=== PATIENT | female | born 1960 | race Caucasian/White ===

== ENCOUNTER 2019-10-11 20:48 | Emergency (ER) | payer MEDICARE ==
[~2019-10-11] VITALS: Ht 167.6 cm; Wt 95.3 kg
[~2019-10-11 20:48] MED LIST: ABILIFY10 MG; ABILIFY10 MG PO; ACCUNEB SO1.25 MG/1; ADVAIR 100-501 EACH INH; ADVAIR 250-501 EACH; ADVAIRDISKUS; ALLOPURINOL 10100 M1 PO; AMBIEN 5 MG TABL5 MG; AMLODIPINE BESY10 MG PO; ANAPROX DS550 MG PO; ASPIRIN325; ATIVAN1 MG PO; BENADRYL ALLERG25 MG PO; BENADRYL25 MG PO; CARVEDILOL12.5 MG PO; CARVEDILOL3.125 MG; CIPROFLOXACIN500 M1 PO; CLARITIN10 MG; CLONAZEPAM 0.50.5 M1; CLONAZEPAM 0.50.5 M1 PO; CLONAZEPAM PO; CLONOPIN; CYMBALTA60 MG PO; FLEXERIL PO; HYCET 7.5 MG-3473 ML PO; HYDROCHLOROTH12.5 MG PO; HYDROCHLOROTHIA25 M2 PO; HYDROCODONE-AP1 EAC6 PO; KEFLEX500 MG PO; LISINOPRIL10 MG PO; LOPRESSOR100 MG PO; LOTRIMIN30 GM TP; MEDROLDOSEPACK PO; NOHOMEMEDICATIONS; NORCO 5-325 TA1 EACH PO; OXYCODONE HCL 55 MG PO; OXYCODONE HCL5 M1 PO; OXYCONTIN PO; PERCOCET 5-3251 EACH PO; PERCOCET 7.5-31 EACH PO; PHENERGAN 25 MG25 M1 PO; PHENERGAN 25 MG25 MG PO; PROVENTIL; PROZAC20 MG PO; ROXICODONE5 M2 PO; SEROQUEL; SEROQUEL XR200 MG PO; TOFRANIL PO; TRAZODONE HCL100 MG PO; TRAZODONE HCL50 MG PO; VALIUM10 MG PO; VALIUM5 MG PO; VENTOLIN HFA 1818 GM INH; VICODIN 5-5001 EACH PO; VICOPROFEN 2001 EACH PO; XANAX XR1 MG; XANAX XR1 MG PO; ZOFRAN ODT4 MG PO
[2019-10-11] MEDS ORDERED: NORCO 5-325 TA1 EAC2 PO (23:09)
[2019-10-11 23:33] VITALS: BP 116/68
== END 2019-10-11 23:35 | disposition home or self-care (01) ==
LOC: M.ERS 20:48
DX: S83.8X2A Sprain of other specified parts of left knee, initial encounter (principal); S93.492A Sprain of other ligament of left ankle, initial encounter; M25.551 Pain in right hip; I10 Essential (primary) hypertension; J44.9 Chronic obstructive pulmonary disease, unspecified; F32.9 Major depressive disorder, single episode, unspecified; F41.9 Anxiety disorder, unspecified; F17.210 Nicotine dependence, cigarettes, uncomplicated; Z90.710 Acquired absence of both cervix and uterus; Z91.040 Latex allergy status; Z88.0 Allergy status to penicillin; Z88.1 Allergy status to other antibiotic agents; Z88.2 Allergy status to sulfonamides; Z88.8 Allergy status to other drugs, medicaments and biological substances; W01.0XXA Fall on same level from slipping, tripping and stumbling without subsequent striking against object, initial encounter; Y93.89 Activity, other specified; Y92.481 Parking lot as the place of occurrence of the external cause; Y99.8 Other external cause status

== ENCOUNTER 2019-11-09 13:17 | Emergency (ER) | payer MEDICARE, MEDICAID ==
[~2019-11-09] VITALS: Ht 167.6 cm; Wt 97.5 kg
[~2019-11-09 13:17] MED LIST changes: +NORCO 5-325 TA1 EAC2 PO
[2019-11-09] MEDS ORDERED: TRAMADOL 50 MG50 MG PO (14:41)
[2019-11-09 14:59] VITALS: BP 148/90
== END 2019-11-09 15:01 | disposition home or self-care (01) ==
LOC: M.ERS 13:17
DX: M54.5 Low back pain (principal); M79.671 Pain in right foot; M53.3 Sacrococcygeal disorders, not elsewhere classified; I10 Essential (primary) hypertension; F17.210 Nicotine dependence, cigarettes, uncomplicated; Z90.710 Acquired absence of both cervix and uterus; Z85.858 Personal history of malignant neoplasm of other endocrine glands; Z91.040 Latex allergy status; Z88.0 Allergy status to penicillin; Z88.2 Allergy status to sulfonamides; Z88.8 Allergy status to other drugs, medicaments and biological substances; Z88.1 Allergy status to other antibiotic agents; W10.8XXA Fall (on) (from) other stairs and steps, initial encounter; Y93.89 Activity, other specified; Y92.89 Other specified places as the place of occurrence of the external cause; Y99.8 Other external cause status

== ENCOUNTER 2020-01-02 19:12 | Emergency (ER) | payer MEDICARE, MEDICAID ==
[~2020-01-02] VITALS: Ht 167.6 cm; Wt 93.0 kg
[~2020-01-02 19:12] MED LIST changes: +TRAMADOL 50 MG50 MG PO
[2020-01-02] MEDS ORDERED: NORCO 5-325 TA1 EAC2 PO (20:35)
[2020-01-02 20:54] VITALS: BP 0/0
== END 2020-01-02 20:55 | disposition home or self-care (01) ==
LOC: M.ERS 19:12
DX: M25.572 Pain in left ankle and joints of left foot (principal); J44.9 Chronic obstructive pulmonary disease, unspecified; I10 Essential (primary) hypertension; F17.210 Nicotine dependence, cigarettes, uncomplicated; Z91.040 Latex allergy status; Z88.0 Allergy status to penicillin; Z88.2 Allergy status to sulfonamides; Z88.8 Allergy status to other drugs, medicaments and biological substances; Z90.710 Acquired absence of both cervix and uterus

== ENCOUNTER 2020-07-14 13:51 | Emergency (ER) | payer MEDICARE, MEDICAID ==
[~2020-07-14] VITALS: Ht 167.6 cm; Wt 99.8 kg
[2020-07-14] MEDS ORDERED: LISINOPRIL-HCT1 EACH PO (14:15)
[2020-07-14] MEDS ORDERED: LASIX 40 MG TAB40 MG (14:15)
[2020-07-14] MEDS ORDERED: ELIQUIS5 MG (14:15)
[2020-07-14] MEDS ORDERED: OMEPRAZOLE40 MG PO (14:16)
[2020-07-14] MEDS ORDERED: ASA81BEC PO (14:16)
[2020-07-14] MEDS ORDERED: KLOR-CON 1010 MEQ PO (14:17)
[2020-07-14] MEDS ORDERED: VOLTAREN100 GM TOP (14:17)
[2020-07-14] MEDS ORDERED: NORCO5 PO (16:08)
[2020-07-14 16:19] VITALS: BP 130/85
== END 2020-07-14 16:19 | disposition home or self-care (01) ==
LOC: M.ERS 13:51
DX: M25.562 Pain in left knee (principal); J44.9 Chronic obstructive pulmonary disease, unspecified; I10 Essential (primary) hypertension; F17.210 Nicotine dependence, cigarettes, uncomplicated; Z91.040 Latex allergy status; Z88.0 Allergy status to penicillin; Z88.2 Allergy status to sulfonamides; Z88.1 Allergy status to other antibiotic agents; Z88.8 Allergy status to other drugs, medicaments and biological substances; Z90.710 Acquired absence of both cervix and uterus; Z96.612 Presence of left artificial shoulder joint; Z96.611 Presence of right artificial shoulder joint

== ENCOUNTER 2020-08-05 19:19 | Emergency (ER) | payer MEDICARE, MEDICAID ==
[~2020-08-05] VITALS: Ht 167.6 cm; Wt 107.0 kg
[~2020-08-05 19:19] MED LIST changes: +ASA81BEC PO; +ELIQUIS5 MG; +KLOR-CON 1010 MEQ PO; +LASIX 40 MG TAB40 MG; +LISINOPRIL-HCT1 EACH PO; +NORCO5 PO; +OMEPRAZOLE40 MG PO; +VOLTAREN100 GM TOP
[2020-08-05] MEDS ORDERED: CARVEDILOL12.5 MG PO (19:41)
[2020-08-05] MEDS ORDERED: LASIX 40 MG TAB40 M2 PO (19:42)
[2020-08-05] MEDS ORDERED: PROAIR HFA8.5 GM INH (19:42)
[2020-08-05] MEDS ORDERED: PNV 29-1 TABLE1 EACH PO (19:42)
[2020-08-05] MEDS ORDERED: PERCOCET 7.5-31 EACH PO (20:41)
[2020-08-05] MEDS ORDERED: CYCLOBENZAPRINE5 MG PO (20:41)
[2020-08-05 20:48] VITALS: BP 150/102
== END 2020-08-05 20:49 | disposition home or self-care (01) ==
LOC: M.ERS 19:19
DX: L03.116 Cellulitis of left lower limb (principal); I10 Essential (primary) hypertension; J44.9 Chronic obstructive pulmonary disease, unspecified; F17.210 Nicotine dependence, cigarettes, uncomplicated; Z88.2 Allergy status to sulfonamides; Z88.0 Allergy status to penicillin; Z88.8 Allergy status to other drugs, medicaments and biological substances; Z91.040 Latex allergy status; Z79.82 Long term (current) use of aspirin; Z79.899 Other long term (current) drug therapy; Z90.710 Acquired absence of both cervix and uterus

== ENCOUNTER 2021-02-23 14:46 | Emergency (ER) | payer MEDICARE, MEDICAID ==
[~2021-02-23] VITALS: Ht 167.6 cm; Wt 108.9 kg
--- NOTE | ~2021-02-23 | EMS ---
[facility] [address] [place] [address] EMS Patient Care Report Name: [facility]EE BERRY [id number] Admission: 02/23/21 Attend Phys: Discharge: 02/23/21 Date of : 56 Report #: [id number] THIS REPORT FOR: //name// Report Transmitted: 02/23/2021 16:38 EMS Care Summary [facility] Incident [id number] @ 02/23/2021 14:06 Incident Location [address] [place] [address] Patient VEE BERRY Female, 60 Years 1960 Patient Address [address] [place] [id number] Patient History Past Traumatic Brain Injury,Hypertension (HTN),Acquired absence of cervix and uterus,Cholecystectomy, Patient Allergies , Chief Complaint Pain-extremity upper Disposition Transported No Lights/[place] Dispatch Reason Sick Person Transported To [facility] Narrative [facility] dispatched to above address for report of shoulder pain. Pt complaining of left shoulder pain. Pt stated she was in the shower and reached behind to continue hygiene when she felt a pop and began experiencing pain. 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 Pt is cradling arm and experiences worsening pain upon [facility] [address] [place] [address] EMS Patient Care Report Name: VEE BERRY Room: [facility]#: [id number] Admission: 02/23/21 Attend Phys: Discharge: 02/23/21 Date of : 56 Report #: [id number] movement. Pt is able to move left arm, but refuses to due to pain. Peripheral pulses are equal and intact, bilaterally. Pt ambulating to ambulance with [facility] upon [facility] arrival at scene. Pt ambulated into ambulance and sat on cot. Transport initiated. Diverted from [place] to [facility] due to high volume and pt decision en route. Report called to [place]. Arrived at destination with no acute changes in pt condition or complaint. Pt taken to room on cot then standing and ambulating to ED bed. Report given to nurse with transfer of pt care. Pt had a blue backpack and jacket and maintained control throughout transport. Unit cleaned and returned to service without incident. Initial Vitals @14:21Pain: 10/04, @14:43Pain: 08/04, @14:21SpO2: 99, @14:43SpO2: 96, @14:21P: 95,R: 22,BP: 169/104, @14:43P: 102,R: 20,BP: 181/117, @14:21GCS: 15, @14:43GCS: 15, @14:24Glucose: 118, Assessments @14:16MENTAL:SKIN:HEENT:LUNG SOUNDS:ABDOMEN:PELVIS//GI:EXTREMITIES:PULSE:NEURO: Impression Acute Pain, not elsewhere classified Timeline 14:05,Call Received 14:05,Dispatch Notified 14:05,Psap Call 14:06,Dispatched 14:06,En Route 14:15,On Scene 14:16,At Patient 14:21,BP: / M,PULSE: ,RR: R,SPO2: Ox,ETCO2: ,BG: ,PAIN: 7,GCS: , 14:21,BP: / M,PULSE: ,RR: R,SPO2: 99 Ox,ETCO2: ,BG: ,PAIN: ,GCS: , 14:21,BP: 169/104 M,PULSE: 95,RR: 22 R,SPO2: Ox,ETCO2: ,BG: ,PAIN: ,GCS: , 14:21,BP: / M,PULSE: ,RR: R,SPO2: Ox,ETCO2: ,BG: ,PAIN: ,GCS: 15, 14:24,BP: / M,PULSE: ,RR: R,SPO2: Ox,ETCO2: ,B,PAIN: ,GCS: , 14:26,Depart Scene 14:43,BP: / M,PULSE: ,RR: R,SPO2: Ox,ETCO2: ,BG: ,PAIN: 5,GCS: , 14:43,BP: / M,PULSE: ,RR: R,SPO2: 96 Ox,ETCO2: ,BG: ,PAIN: ,GCS: , 14:43,BP: 181/117 M,PULSE: 102,RR: 20 R,SPO2: Ox,ETCO2: ,BG: ,PAIN: ,GCS: , [place] [address] EMS Patient Care Report Name: VEE BERRY [id number] Admission: 02/23/21 Attend Phys: Discharge: 02/23/21 Date of : 56 Report #: [id number] 14:43,BP: / M,PULSE: ,RR: R,SPO2: Ox,ETCO2: ,BG: ,PAIN: ,GCS: 15, 14:44,At Destination 14:57,Call Closed Disclaimer v1.1 Copyright 2020 [employer] This EMS Care Summary contains data elements from the applicable legal record (which may be displayed differently). It is designed to provide pertinent information for the following purposes: continuity of care, clinical quality, and state data reporting. The complete legal record is available to ED staff and administrators of the receiving hospital in [facility]'s Patient Tracker. All data is provided "as is."
[~2021-02-23 14:46] MED LIST changes: +CYCLOBENZAPRINE5 MG PO; +LASIX 40 MG TAB40 M2 PO; +PNV 29-1 TABLE1 EACH PO; +PROAIR HFA8.5 GM INH
[2021-02-23] MEDS ORDERED: NORCO5 PO (16:35)
[2021-02-23 16:46] VITALS: BP 168/92
== END 2021-02-23 16:47 | disposition home or self-care (01) ==
LOC: M.ERS 14:46
DX: M25.511 Pain in right shoulder (principal); J44.9 Chronic obstructive pulmonary disease, unspecified; F32.9 Major depressive disorder, single episode, unspecified; F41.9 Anxiety disorder, unspecified; I10 Essential (primary) hypertension; F17.210 Nicotine dependence, cigarettes, uncomplicated; Z90.710 Acquired absence of both cervix and uterus; Z90.49 Acquired absence of other specified parts of digestive tract; Z91.040 Latex allergy status; Z88.0 Allergy status to penicillin; Z88.2 Allergy status to sulfonamides; Z88.8 Allergy status to other drugs, medicaments and biological substances